=== PATIENT | male | born 1955 | race Caucasian/White ===

== ENCOUNTER 2020-08-02 13:09 | Emergency (ER) | payer BC, OTHER ==
[2020-08-02] MEDS ORDERED: Lidocaine 1% with EPINEPHrine 1:100,000 10 ML MDV INJECT ONE (13:24)
[2020-08-02] MEDS ORDERED: Diphtheria,Pertussis(Acell),Tetanus Vaccine 0.5 ML Syringe IM ONE ×2 (13:24→13:43)
[2020-08-02] MEDS ORDERED: Lidocaine 1% with EPINEPHrine 1:100,000 20 ML MDV ONE (13:31)
--- NOTE | 2020-08-02 13:37 | EDM.PDOC ---
ED HPI GENERAL MEDICAL PROBLEM - General Chief Complaint: Laceration Stated Complaint: INJURY TO LEFT FOOT Time Seen by Provider: 08/02/20 13:10 Source of Information: Reports: Patient History Limitations: Reports: No Limitations - History of Present Illness INITIAL COMMENTS - FREE TEXT/NARRATIVE: HISTORY AND PHYSICAL: History of present illness: Patient is a 65-year-old male who presents to the emergency room with complaints of a crush injury and laceration of the right foot. He states while at work a large heavy beam had fallen and landed on his foot. States he had immediate pain and was unable to bear weight, was assisted to the emergency room. States he has sensation to the extremity; but has "tingling" sensation to distal toes. He does have a small laceration that was bleeding, controlled with direct pressure. Unsure of his last tetanus update. He denies hitting his head or having any loss of consciousness. Denies any other extremity involvement. Patient denies any fever, chills, headache, change in vision, syncope or near syncope. Denies any chest pain, back pain, shortness of breath or cough. Denies any GI or symptoms. Review of systems: As per history of present illness and below otherwise all systems reviewed and negative. Past medical history: As per history of present illness and as reviewed below otherwise noncontributory. Surgical history: As per history of present illness and as reviewed below otherwise noncontributory. Social history: See social history for further information Family history: As per history of present illness and as reviewed below otherwise noncontributory. Physical exam: General: Well developed and well nourished 65 year old male. Alert and orientated x 3. Nontoxic in appearance and in no acute distress. Vital signs are stable and have been reviewed by me. Nursing notes were reviewed. HEENT: Atraumatic, normocephalic, pupils equal and reactive bilaterally, negative for conjunctival pallor or scleral icterus, mucous membranes moist, trachea midline. No drooling or trismus noted. No meningeal signs. No hot potato voice noted. Lungs: Clear to auscultation, breath sounds equal bilaterally. Normal work of breathing, no accessory muscles used. Heart: S1S2, regular rate and rhythm without overt murmur Abdomen: Soft, nondistended, nontender. Skin: Soft tissue swelling and 1 cm laceration to mid right foot below the great toe. Otherwise remaining skin is intact, warm, dry. No lesions or rashes noted. Hematologic: No petechiae or purpra. Mucosa appropriate color and normal nail bed color and refill. Extremities: Soft tissue swelling with 1 cm laceration across midfoot below right great toe. Strong pedal pulse with cap refill less than 3 seconds. He has +CMS, he moves all extremities per self without deficits. Increased pain with weight bearing of right foot, negative for cords or calf pain. Neurovascular unremarkable. Neuro: Awake, alert, oriented. Cranial nerves II through XII unremarkable. Cerebellum unremarkable. Motor and sensory unremarkable throughout. Exam nonfocal. Psychiatric: Mood and affect are appropriate. Normal thought process. Answering questions appropriately. Notes: X-ray shows a comminuted fracture of the first metatarsal, minimally displaced oblique fracture of the second metatarsal, and a small avulsion injury at the base of the proximal third phalanx. Moderate superficial soft tissue swelling is noted. Due to the comminuted fracture I am get a do a CT of the lower extremity. Tetanus has been updated. He has been given Ancef for the open frac ture. Spoke Dr Bull Zee, orthopedic provider on-call, about this patient. He would like this patient to be referred to [facility] [place]. CT of the lower extremity shows an acute comminuted prominent displaced segmental fracture of the first midshaft metatarsal with a large gap between the dominant fracture fragments. Acute moderate displaced transverse fracture midshaft of second metatarsal. Acute oblique mildly displaced intra-articular avulsion fracture of the lateral aspect of the base of the third proximal phalanx. Acute oblique moderately displaced intra-articular avulsion fracture of the medial aspect of the base of the first metatarsal. 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 1530: Spoke with Dr Alaniz (orthopedics) at [facility] about this case. He is agreeable to accepting this patient. At this time I will not close the 1 cm laceration, a nonstick dressing has been applied along with a fiberglass splint for transferring purposes. Dr Hunt through the ED was informed of this patient. He will be transferred via EMS. I have talked with the patient and his about today's findings, in addition to providing specific details for plan of care. He is aware of the need for orthopedics/podiatry care for his fracture. Patient remains stable. Denies any further questions or concerns at this time. Wound care was provided and a nonstick dressing has been applied along with a fiberglass splint for transferring purposes. Patient's personal belongings including his wallet was sent with his Moon. Patient continues to have strong pedal and pretibial pulse with positive CMS of the affected extremity. Diagnostics: Foot x-ray, CT lower extremity Therapeutics: Tdap, Ancef, Dilaudid, Zofran, Posterior fiberglass splint Impression: Lisfranc Injury, Right Foot Open metatarsal fracture, right 1st digit Plan: Transfer to [facility] Definitive disposition and diagnosis as appropriate pending reevaluation and review of above. Right foot Pain Score (Numeric/FACES): 10 - Related Data Allergies Allergy/AdvReac Type Severity Reaction Status Date / Time No Known Allergies Allergy Verified 08/02/20 13:28 Home Meds: Home Meds Aspirin [Miles Chewable Aspirin] 08/02/20 [History] Metoprolol Succinate [Toprol XL] 25 mg PO DAILY 08/02/20 [History] RABEprazole Sodium [Aciphex] 08/02/20 [History] Venlafaxine [Effexor XR] 08/02/20 [History] atorvaSTATin [Lipitor] 40 mg PO 08/02/20 [History] clonazePAM [Clonazepam] 08/02/20 [History] lisinopriL [Zestril] 08/02/20 [History] Past Medical History Cardiovascular History: Reports: Bypass, High Cholesterol, Hypertension Psychiatric History: Reports: Anxiety, Depression - Infectious Disease History Infectious Disease History: Reports: None Social & Family History - Family History Family Medical History: No Pertinent Family History - Tobacco Use Tobacco Use Status *Q: Current Every Day Tobacco User Years of Tobacco use: 20 Packs/Tins Daily: 1 ED ROS GENERAL - Review of Systems Review Of Systems: Comprehensive ROS is negative, except as noted in HPI. ED EXAM, SKIN/RASH Exam: See Below (See dictation) Course - Vital Signs Last Recorded V/S: Last Vital Signs Temp 98.4 F 08/02/20 13:13 Pulse 69 08/02/20 13:13 Resp 20 08/02/20 13:13 BP 105/69 08/02/20 13:13 Pulse Ox 96 08/02/20 13:13 - Orders/Labs/Meds Orders: Active Orders 24 hr Category Date Time Status Vaccines to be Administered [RC] PER UNIT ROUTINE Care 08/02/20 13:25 Active Vaccines to be Administered [RC] PER UNIT ROUTINE Care 08/02/20 13:43 Active CORONAVIRUS COVID-19 JONATHON [MOLEC] Stat Lab 08/02/20 15:24 Received Meds: Medications Discontinued Medications Generic Name Dose Route Start Last Admin Trade Name Ermiasq PRN Reason Stop Dose Admin Diphtheria/Tetanus/Acell Pertussis 0.5 ml 08/02/20 13:43 08/02/20 13:46 Boostrix IM 08/02/20 13:44 0.5 ml .ONCE ONE Administration Hydromorphone HCl 1 mg 08/02/20 13:57 08/02/20 14:31 Dilaudid IVPUSH 08/02/20 13:58 1 mg ONETIME ONE Administration Cefazolin Sodium/Dextrose 2 gm 50 mls @ 100 mls/hr 08/02/20 13:57 08/02/20 14:33 / Premix IV 08/02/20 14:26 100 mls/hr ONETIME ONE Administration Sodium Chloride 1,000 mls @ 999 mls/hr 08/02/20 13:57 08/02/20 14:52 Normal Saline IV 08/02/20 14:57 999 mls/hr STAT ONE Administration Lidocaine/Epinephrine 10 ml 08/02/20 13:24 08/02/20 14:34 Xylocaine 1% With Epinephrine 1:100,000 INJECT 08/02/20 13:25 Not Given ONETIME ONE Lidocaine/Epinephrine Confirm 08/02/20 13:31 08/02/20 14:00 Xylocaine 1% With Epinephrine 1:100,000 Administered 08/02/20 13:32 Not Given Dose 20 ml .ROUTE .STK-MED ONE Lidocaine/Epinephrine 20 ml 08/02/20 13:47 Xylocaine 1% With Epinephrine 1:100,000 INJECT 08/02/20 13:48 ONETIME ONE Ondansetron HCl 4 mg 08/02/20 13:57 08/02/20 14:30 Zofran IVPUSH 08/02/20 13:58 4 mg ONETIME ONE Administration Departure - Departure Time of Disposition: 16:01 Disposition: DC/Tfer to Acute Hospital 02 Clinical Impression: Lisfranc fracture Open fracture of metatarsal bone of right foot Qualifiers: Encounter type: initial encounter Metatarsal bone: first Fracture alignment: displaced Qualified Code(s): S92.311B - Displaced fracture of first metatarsal bone, right foot, initial encounter for open fracture - Discharge Information Referrals: PCP,Not In Area [Primary Care Provider] - Forms: ED Department Discharge Sepsis Event Note (ED) - Evaluation Sepsis Screening Result: No Definite Risk - Focused Exam Vital Signs: Vital Signs Temp Pulse Resp BP Pulse Ox 08/02/20 13:13 98.4 F 69 20 105/69 96 - My Orders Last 24 Hours: My Active Orders 08/02/20 13:25 Vaccines to be Administered [RC] PER UNIT ROUTINE 08/02/20 13:43 Vaccines to be Administered [RC] PER UNIT ROUTINE 08/02/20 15:24 CORONAVIRUS COVID-19 JONATHON [MOLEC] Stat - Assessment/Plan Last 24 Hours: My Active Orders 08/02/20 13:25 Vaccines to be Administered [RC] PER UNIT ROUTINE 08/02/20 13:43 Vaccines to be Administered [RC] PER UNIT ROUTINE 08/02/20 15:24 CORONAVIRUS COVID-19 JONATHON [MOLEC] Stat
[2020-08-02] MEDS ORDERED: Lidocaine 1% with EPINEPHrine 1:100,000 20 ML MDV INJECT ONE (13:47)
[2020-08-02] MEDS ORDERED: Sodium Chloride 0.9% 1,000 ML IV ONE (13:57)
[2020-08-02] MEDS ORDERED: ceFAZolin 2 GM in Premix Bag 1 BAG IV ONE (13:57)
[2020-08-02] MEDS ORDERED: Ondansetron 4 MG/2 ML SDV IVPUSH ONE (13:57)
[2020-08-02] MEDS ORDERED: HYDROmorphone 1 MG/ML Syringe IVPUSH ONE (13:57)
--- NOTE | 2020-08-02 14:11 | CR ---
Indication: Crush injury Comparison: None available. Technique: AP, Lateral, and Oblique views right foot were obtained Findings: There is comminuted displaced fracture of the mid diaphysis of the 1st metatarsal with oblique displaced fracture of the 2nd metatarsal. There is additional small avulsion injury at the base of the proximal 3rd phalanx. There is no other definite fracture identified. The joint spaces are grossly preserved. There is moderate superficial soft tissue swelling. Impression: Comminuted fracture of the 1st metatarsal, a minimally displaced oblique fracture of the 2nd metatarsal, and small avulsion injury at the base of the proximal 3rd phalanx. Dictated by Darrian Sullivan MD @ Aug 02 2020 2:09PM Signed by Dr. Darrian Sullivan @ Aug 02 2020 2:10PM
--- NOTE | 2020-08-02 15:18 | CT ---
Indication: Crush injury with metatarsal fractures. Technique: Noncontrast CT examination of the foot is performed using spiral technique to obtain 0.8 and 3 millimeter thick axial and 2 millimeter thick coronal and sagittal images. Please note that all CT scans at this facility use dose modulation, iterative reconstruction, and/or weight-based dosing when appropriate to reduce radiation dose to as low as reasonably achievable. Comparison: Plain films of the foot from earlier today. Findings: As seen on the plain films, there is an acute, comminuted, segmental fracture of the midshaft of the 1st metatarsal with numerous small fracture fragments in poor continuity with each other. The major proximal and distal fracture fragments are by approximately 2.2 centimeters. The proximal end of the major segmental fracture fragment is prominently displaced in the volar direction resulting in a large gap between the dominant fragments. There is 100 percent of volar displacement of the major distal fracture fragment. There is an acute, oblique fracture of the midshaft of the 2nd metatarsal with approximately 70 percent of volar displacement of the distal fracture fragment. There is an acute, oblique, intra-articular fracture of the lateral aspect of the base of the 3rd proximal phalanx with approximately 2 millimeters of lateral displacement. There is an acute, mildly displaced avulsion fracture of the medial aspect of the base of the first metatarsal. There are acute, mildly displaced avulsion fractures along the lateral aspect of the 1st TMT joint, arising from the base of the 1st metatarsal and the distal 1st cuneiform. There is no sign of any fracture of the 3rd through 5th metatarsals. There is no sign of fracture of any of the other phalanges. There is mild primary osteoarthritis of the 1st MTP joint. There is a moderate plantar calcaneal spur and a tiny posterior calcaneal spur. No additional degenerative changes are evident. There is moderate soft tissue swelling overlying the fracture sites, with a small amount of soft tissue gas seen in the medial foot. Impression: Acute, comminuted, prominently displaced, segmental fracture of the midshaft of the 1st metatarsal with a large gap between the dominant fracture fragments pre spine prominent angulation of the segmental fragment. Acute, moderately displaced transverse fracture of the midshaft of the 2nd metatarsal. Acute, oblique, mildly displaced, intra-articular avulsion fracture of the lateral aspect of the base of the 3rd proximal phalanx. Acute, oblique, moderately displaced, intra-articular avulsion fracture of the medial aspect of the base of the 1st metatarsal. Acute, mildly displaced, intra-articular avulsion fractures of the lateral aspect of the base of the 1st metatarsal and distal medial cuneiform. 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 Please note that all CT scans at this facility use dose modulation, iterative reconstruction, and/or weight-based dosing when appropriate to reduce radiation dose to as low as reasonably achievable. Dictated by Kris Cheung MD @ Aug 02 2020 3:03PM Signed by Dr. Kris Cheung @ Aug 02 2020 3:17PM
== END 2020-08-02 16:48 ==
LOC: MW.ED 13:09
DX: S92.311B Displaced fracture of first metatarsal bone, right foot, initial encounter for open fracture (principal); I10 Essential (primary) hypertension; F41.9 Anxiety disorder, unspecified; F32.9 Major depressive disorder, single episode, unspecified; F17.210 Nicotine dependence, cigarettes, uncomplicated; Z79.899 Other long term (current) drug therapy; Z20.828 Contact with and (suspected) exposure to other viral communicable diseases; W20.8XXA Other cause of strike by thrown, projected or falling object, initial encounter; Y92.89 Other specified places as the place of occurrence of the external cause; Y99.0 Civilian activity done for income or pay
CPT/HCPCS: 29515; 73630; 73700; 87635; 90471; 96365; 96375; 99285; J0690; J1170; J2405; J7030; 99283; U0002